=== PATIENT | female | born 1990 | race Caucasian/White ===

== ENCOUNTER 2020-02-18 10:08 | Inpatient (IN) | payer BC ==
[2020-02-18] MEDS ORDERED: CARBOPROST TROMETHAMINE 250 MCG/ML 1 ML AMP IM PRN (10:46)
[2020-02-18] MEDS ORDERED: LIDOCAINE 0.5% (PF) 5 MG/ML (50 ML SDV) SQ PRN (10:46)
[2020-02-18] MEDS ORDERED: TERBUTALINE 1 MG/ML VIAL SQ PRN (10:46)
[2020-02-18] MEDS ORDERED: METHYLERGONOVINE 0.2 MG/ML 1 ML AMP IM PRN (10:46)
[2020-02-18] MEDS ORDERED: OXYTOCIN 10 UNIT/ML 1 ML VIAL IM PRN (10:46)
[2020-02-18] MEDS ORDERED: AMPICILLIN 2,000 MG in SODIUM CHLORIDE 0.9% 100 ML IVPB STA (10:50)
[2020-02-18] MEDS ORDERED: OXYTOCIN 30 UNITS/500 ML NS 30 UNIT in SALINE 1 500ML.BAG IV SCH (11:00)
[2020-02-18] MEDS ORDERED: LACTATED RINGERS 1,000 ML IV SCH (11:00)
[2020-02-18 11:10] LABS: Glucose,Urine (UA) Negative (Negative); Ketones,Urine Negative (Negative); Protein,Urine Negative (Negative)
[2020-02-18 11:27] LABS: Protein/Creatinine Ratio,Urine 0.389
[2020-02-18 11:49] LABS: Anisocytosis Moderate; Basophils % (A) 0 %; Eosinophils # (A) 0.2 k/uL (0-0.7); Eosinophils % (A) 1 %; HCT 36.8 % (34.0-46.0); HGB 11.2 gm/dL (11.4-16.0); Hypochromasia Moderate; Lymphocytes # (A) 1.2 k/uL (1.0-4.8); Lymphocytes % (A) 10 %; MCH 24.3 pg (25.0-35.0); MCHC 30.5 g/dL (31.0-37.0); MCV 79.8 fL (80.0-100.0); Mean Platelet Volume 9.6; Microcytosis Moderate; Monocytes # (A) 0.6 k/uL (0-1.0); Monocytes % (A) 5 %; Neutrophils # (A) 9.6 k/uL (1.3-7.7); Neutrophils % (A) 83 %; Platelet Count 225 k/uL (150-450); RBC 4.61 m/uL (3.80-5.40); RDW 22.9 % (11.5-15.5); WBC 11.6 k/uL (3.8-10.6)
[2020-02-18 11:53] LABS: ALT 13 U/L (4-34); AST 19 U/L (14-36); African American GFR (CKD) >90 (>60 ml/min/1.73 sqM); Blood Urea Nitrogen 4 mg/dL (7-17); Non-African American GFR(CKD) >90 (>60 ml/min/1.73 sqM); Uric Acid 5.1 mg/dL (3.7-7.4)
--- NOTE | 2020-02-18 11:56 | P.HPOB ---
History of Present Illness H&P Date: 02/18/20 Chief Complaint: Hypertension This patient is a pleasant 29-year-old 1 para 0 female estimated date of confinement 03/03/2020 estimated gestational age 38 weeks who presents to labor and delivery from my office for evaluation of hypertension. Patient had a blood pressure elevation the office 136/90. She has had some swelling in her feet and some of her face. She denies headaches. Repeat blood pressure here in labor and delivery shows a persistent elevation 146/86. Protein to creatinine ratio was slightly elevated the rest of her labs are pending. has been otherwise uncomplicated with the exception of chronic anemia. She is also a tobacco smoker. Patient now presents for delivery secondary to gestational hypertension. Review of Systems Genitourinary: Reports Menstruation: Reports amenorrhea Past Medical History Past Medical History: No Reported History History of Any Multi-Drug Resistant Organisms: None Reported Past Surgical History: No Surgical Hx Reported Past Anesthesia/Blood Transfusion Reactions: No Reported Reaction Past Psychological History: No Psychological Hx Reported Smoking Status: Former smoker Past Alcohol Use History: None Reported Past Drug Use History: None Reported Medications and Allergies Home Medications Medication Instructions Recorded Confirmed Type Pnv,Calcium 72/Iron/Folic Acid 1 each PO DAILY 02/18/20 02/18/20 History [ Plus Tablet] Allergies Allergy/AdvReac Type Severity Reaction Status Date / Time No Known Allergies Allergy Verified 02/18/20 10:22 Exam Vital Signs Temp Pulse Resp BP 02/18/20 10:23 97.3 F L 93 18 146/86 Intake and Output 02/17/20 02/18/20 02/18/20 22:59 06:59 14:59 Other: Weight 103.169 kg - OBG Physical Exam Vulva: both: normal Vagina: normal moisture, no discharge Cervix: no lesion (Cervix is 2 cm on effaced but soft -2 station), no discharge Uterus: enlarged (Fundal height is 39 cm) Results blood work shows she is AB+, rubella immune, RPR nonreactive, hepatitis B negative, she had a normal Glucola, she's had a positive group B strep, ultrasound today showed the baby 7 lbs. 5 oz. which is 75th percentile. Result Diagrams: 02/18/20 11:02 Abnormal Lab Results - Last 24 Hours (Table) 02/18/20 Range/Units 11:02 WBC 11.6 H (3.8-10.6) k/uL Hgb 11.2 L (11.4-16.0) gm/dL MCV 79.8 L (80.0-100.0) fL MCH 24.3 L (25.0-35.0) pg MCHC 30.5 L (31.0-37.0) g/dL RDW 22.9 H (11.5-15.5) % Neutrophils # 9.6 H (1.3-7.7) k/uL Assessment and Plan Assessment: This is a pleasant 29-year-old 1 para 0 female 38-0/7 weeks gestation with gestational hypertension who presents for delivery secondary to this. Patient also has a positive group B strep culture. Plan is antibiotic prophylaxis, induction of labor, and anticipate vaginal delivery. (1) Gestational hypertension Current Visit: Yes Status: Acute Code(s): O13.9 - GESTATIONAL HTN W/O SIGNIFICANT PROTEINURIA, UNSP TRIMESTER SNOMED Code(s): 863379422 (2) Group B streptococcal carriage complicating Current Visit: Yes Status: Acute Code(s): O99.820 - STREPTOCOCCUS B CARRIER STATE COMPLICATING SNOMED Code(s): 732206747042850 (3) Chronic anemia Current Visit: Yes Status: Acute Code(s): D64.9 - ANEMIA, UNSPECIFIED SNOMED Code(s): 328849133
[2020-02-18] MEDS: LACTATED RINGERS 1,000 ML IV SCH ×3 (11:59→23:00)
[2020-02-18 12:09] LABS: LDH 497 U/L (313-618)
[2020-02-18] MEDS: AMPICILLIN 1,000 MG in SODIUM CHLORIDE 0.9% 50 ML IVPB SCH ×2 (16:07→19:59)
--- NOTE | 2020-02-18 18:51 | P.MSEPDOC ---
Presenting Problems - Arrival Data Date of Arrival on Unit: 02/18/20 Time of Arrival on Unit: 10:47 Mode of Transport: Ambulatory - Complaint OB-Reason for Admission/Chief Complaint: PIH Comment: Sent from office for PIH workup Medical History - Information : 1 Para: 0 Term: 0 : 0 Abortions: Spontaneous or Elective: 0 Number of Living Children: 0 - Gestational Age Gestational Age by GABRIELA (wks/days): 38 Weeks and 0 Days Review of Systems - Review of Systems Constitutional: No problems Breast: No problems ENT: No problems Cardiovascular: No problems Respiratory: No problems Gastrointestinal: No problems Genitourinary: No problems Musculoskeletal: No problems Neurological: No problems Skin: No problems Vital Signs - Temperature Temperature: 97.7 F Temperature Source: Oral - Pulse Pulse Oximetery Pulse Rate: 93 Pulse Assessment Method: Automatic Cuff - Respirations Respiratory Rate: 16 Oxygen Delivery Method: Room Air - Blood Pressure Right Arm Blood Pressure: 146/86 Blood Pressure Mean: 106 Blood Pressure Source: Automatic Cuff Medical Screen Scoring (Pre) - Cervical Exam Dilation: Exam Deferred Effacement: Exam Deferred - Uterine Contractions Frequency: N/A - Maternal Vital Signs Maternal Temperature: N/A Maternal Blood Pressure: Systolic >139 = 2 Signs of Preeclampsia: N/A Maternal Respirations: N/A - Maternal Trauma Maternal Trauma: N/A - Assessment - Baby A Baseline FHR: 140 Heart Rate - NICHD Category: Category I (Normal) = 0 NST: Reactive Position: N/A Station: N/A - Total Score - Baby A Total Score - Baby A: 2 - Total Score - Baby B Total Score - Baby B: 2 - Total Score - Baby C Total Score - Baby C: 2 - Level of Risk - Baby A Level of Risk - Baby A: Low (0-5) - Level of Risk - Baby B Level of Risk - Baby B: Low (0-5) - Level of Risk - Baby C Level of Risk - Baby C: Low (0-5) - Pain Assessment Pain Scale Used: Numeric (1 - 10) Pain Intensity: 0 Physician Notification (Pre) - Physician Notified Physician Notified Date: 02/18/20 Physician Notified Time: 10:44 New Order Received: Yes - Notification Comment Comment: Lukasz Petersen called the unit- Plan for IOL Disposition - Disposition OB Disposition: Admit Discharge Date: 02/18/20 Discharge Time: 10:44 I agree with the RN Medical Screening Exam: Yes Risk & Benefit of care provided described in d/c instruction: Yes Diagnosis: GESTATIONAL HTN W/O SIGNIFICANT PROTEINURIA, THIRD TRIMESTER
[2020-02-18] MEDS ORDERED: fentaNYL (PF) 50 MCG/ML 5 ML AMP ONE (19:21)
[2020-02-18] MEDS ORDERED: ROPIVACAINE 5MG/ML 20ML VIAL ONE (19:21)
[2020-02-18] MEDS ORDERED: SODIUM CHLORIDE 0.9% 100 ML BAG ONE (19:21)
[2020-02-19] MEDS ORDERED: diphenhydrAMINE 25 MG CAP PO PRN (05:41)
[2020-02-19] MEDS ORDERED: ZOLPIDEM 5 MG TAB PO PRN (05:41)
[2020-02-19] MEDS ORDERED: diphenhydrAMINE 50 MG/ML 1 ML VIAL IVP PRN (05:41)
[2020-02-19] MEDS ORDERED: SIMETHICONE 80 MG CHEWABLE PO PRN (05:41)
[2020-02-19] MEDS ORDERED: ACETAMINOPHEN TAB 325 MG TAB PO PRN (05:41)
[2020-02-19] MEDS ORDERED: BENZOCAINE/MENTHOL SPRAY 1 GM/SPRAY AEROSOL TOPICAL PRN (05:41)
[2020-02-19] MEDS ORDERED: LANOLIN CREAM 5 GM TUBE TOPICAL PRN (05:41)
[2020-02-19] MEDS ORDERED: HYDROCORTISONE 2.5% RECTAL CREAM 30 GM TUBE RECTAL PRN (05:41)
[2020-02-19] MEDS ORDERED: OXYTOCIN 20 UNITS/1000 ML NS 1,000 ML IV SCH (05:45)
--- NOTE | 2020-02-19 05:48 | P.PROBDLV ---
Vaginal Delivery Note - . Vaginal Delivery Note: Normal vaginal delivery viable male infant Apgars 8 and 9 delivery time was 0502 hrs. Please see dictated H&P for intimate details of this patient's admission. Brief summary this is a pleasant 29-year-old 1 para 0 female 38-0/7 weeks gestation admitted to labor and delivery from my office for gestational hypertension. She has persistent hypertension without evidence of severe preeclampsia. Due to her gestational age recommendations are to proceed with martines at this time. Patient is about 2 cm dilated has artificial rupture membranes for clear fluid. She has Pitocin augmentation of labor. Patient's labor progresses she does get an epidural for pain control. Patient progresses normally gets to complete pushes for approximately 60 minutes. Pushes the head to the perineum. Patient does have a constricted peritoneum and therefore I infiltrate 1% lidocaine and a midline episiotomy is made. With 1 push she then has controlled delivery of the infant's head. Mouth and nares are bulb suctioned. There is a tight nuchal cord which is doubly clamped and cut and then reduced. is delivered straight occiput anterior presentation. With gentle downward traction within delivery the anterior and posterior shoulder and rest this infant's body. This is a vigorous viable male infant Apgars are 8 and 9 delivery time was 0502 hrs. has spontaneous respiration and good cry. After delivery of the the placenta is delivered spontaneously intact. Inspection of the perineum shows a third-degree laceration. I did do a rectal exam is no evidence of active mucosal disruption. There are no other lacerations noted at that time. Gelpi is placed to visualize the rectal sphincter she's easily. 2 Allis clamps are placed bilaterally. Interrupted 3-0 Vicryl 4 is placed to reapproximate the rectal sheath and rectal muscle with excellent reapproximation. The rest of the laceration is repaired with 3-0 Vicryl in the usual fashion. Final rectal exam an examination shows good reapproximation and repair. All counts are correct 3. There are no complications. Infant and mother stable delivery room.
[2020-02-19] MEDS ORDERED: DOCUSATE 100 MG CAP PO PRN (07:20)
[2020-02-19] MEDS: IBUPROFEN 600 MG TAB PO PRN ×3 (07:40→21:23)
[2020-02-19] MEDS: SENNOSIDES-DOCUSATE SODIUM 1 EACH TAB PO SCH ×2 (07:40→21:23)
[2020-02-19] MEDS: AMPICILLIN 1,000 MG in SODIUM CHLORIDE 0.9% 50 ML IVPB SCH ×3 (09:53)
[2020-02-20] MEDS: IBUPROFEN 600 MG TAB PO PRN ×3 (05:04→20:16)
[2020-02-20] MEDS: SENNOSIDES-DOCUSATE SODIUM 1 EACH TAB PO SCH ×2 (09:01→20:16)
--- NOTE | 2020-02-20 11:25 | P.PNOBGVD ---
Subjective - Subjective Principal diagnosis: Status post vaginal delivery day #1 Interval history: Patient is doing well. Lochia is decreasing. Her pain is well-controlled. Her swelling in her legs has gone down. She is breast-feeding without difficulty. Baby is on a bili blanket. Patient reports: Reports appetite normal, Reports voiding normally, Reports pain well controlled, Reports ambulating normally [place]: doing well, nursing well Objective - Latest Vital Signs Latest vital signs: Vital Signs Temp Pulse Resp BP Pulse Ox 02/20/20 08:00 97.9 F 89 14 122/88 02/20/20 00:00 98.0 F 95 16 130/72 95 02/19/20 16:00 98.0 F 86 16 123/81 02/19/20 12:00 98.4 F 96 16 133/84 100 Intake and Output 02/19/20 02/20/20 02/20/20 22:59 06:59 14:59 Other: # Voids 1 1 - Exam Extremities: Present: edema Abdomen: Present: normal appearance, soft. Absent: distention, tenderness Uterus: Present: normal, firm. Absent: tenderness Assessment and Plan Assessment: Status post vaginal delivery day #1 Plan: Will continue with care today. Vital signs are stable. Baby is on a bili blanket and therefore will be circumcised tomorrow. Anticipate discharge home tomorrow.
[2020-02-21] MEDS: IBUPROFEN 600 MG TAB PO PRN ×3 (03:09→15:51)
--- NOTE | 2020-02-21 08:37 | P.DS ---
Providers Date of admission: 02/18/20 10:47 Expected date of discharge: 02/21/20 Attending physician: Santino ePtersen Primary care physician: Stated None Hospital Course: This is a 29-year-old female 1 para 0 at 38 and one sevenths weeks who was induced for station hypertension. She delivered vaginally a viable male on 02/19/2020 with scores of 8 at 1 minute and 9 at 5 minutes and weight of 7 pounds 6.5 ounces. Her course has been essentially uncomplicated. Baby has been on a bili light. She is breast- feeding. Lochia is decreasing. Pain is fairly well controlled. She does complain of some swelling in her ankles. Vital signs are stable. Blood pressures have been normal. Abdomen is soft with fundus firm and nontender. Extremities show negative Homans. Impression is status post vaginal delivery day #2. Plan is to discharge home today. Routine instructions are given. She will be given a prescription for ibuprofen. She states she has a breast pump at home. She is advised to follow up with Dr. Petersen in 6 weeks in the office. She is advised to call the office if she has any further questions or concerns prior to her appointment time. Procedures: Oxytocin induction of labor Spontaneous vaginal delivery of a viable male infant on 02/19/2020 Patient Condition at Discharge: Stable Plan - Discharge Summary New Discharge Prescriptions: New Docusate [Colace] 100 mg PO DAILY PRN #30 cap PRN Reason: Constipation Ibuprofen [Motrin] 600 mg PO Q6HR PRN #40 tab PRN Reason: Mild Pain Or Fever >= 100.5 No Action Pnv,Calcium 72/Iron/Folic Acid [ Plus Tablet] 1 each PO DAILY Discharge Medication List Pnv,Calcium 72/Iron/Folic Acid [ Plus Tablet] 1 each PO DAILY 02/18/20 [History] Docusate [Colace] 100 mg PO DAILY PRN #30 cap 02/19/20 [Rx] Ibuprofen [Motrin] 600 mg PO Q6HR PRN #40 tab 02/19/20 [Rx] Follow up Appointment(s)/Referral(s): Santino Petersen MD [STAFF PHYSICIAN] - 6 Weeks Patient Instructions/Handouts: Vaginal Delivery (DC) Activity/Diet/Wound Care/Special Instructions: No intercourse or anything per vagina for 6 weeks. Please call if any fever, chills, excessive vaginal bleeding, and/or abdominal pain. Discharge Disposition: HOME SELF-CARE
[2020-02-21] MEDS: SENNOSIDES-DOCUSATE SODIUM 1 EACH TAB PO SCH (09:50)
[2020-02-21 16:28] VITALS: BP 126/78; PULSE 78; RESP 18; TEMP 98.5
== END 2020-02-21 19:30 | disposition home or self-care (01) | DRG 768 ==
LOC: FBPOP 10:08 → 4FBP 10:47
PROVIDERS: ADMIT Obstetrics & Gynecology; ATTEND Obstetrics & Gynecology
PROC: 0DQR0ZZ Repair Anal Sphincter, Open Approach (ICD-10-PCS; principal; 2020-02-19)
PROC: 3E0R3BZ Introduction of Anesthetic Agent into Spinal Canal, Percutaneous Approach (ICD-10-PCS; principal; 2020-02-19)
PROC: 10E0XZZ Delivery of Products of Conception, External Approach (ICD-10-PCS; principal; 2020-02-19)
PROC: 00HU33Z Insertion of Infusion Device into Spinal Canal, Percutaneous Approach (ICD-10-PCS; principal; 2020-02-19)
DX: O13.4 Gestational [pregnancy-induced] hypertension without significant proteinuria, complicating childbirth (principal); Z37.0 Single live birth; O69.1XX0 Labor and delivery complicated by cord around neck, with compression, not applicable or unspecified; O99.02 Anemia complicating childbirth; D64.9 Anemia, unspecified; O99.824 Streptococcus B carrier state complicating childbirth; O70.20 Third degree perineal laceration during delivery, unspecified; Z3A.38 38 weeks gestation of pregnancy; Z87.891 Personal history of nicotine dependence
CPT/HCPCS: 59025; 81003; 82565; 82570; 83615; 84156; 84450; 84460; 84520; 84550; 85025; 86850; 86900; 86901; 88307; 99215